=== PATIENT | female | born 1960 | race Caucasian/White ===

== ENCOUNTER 2017-02-20 12:25 | Emergency (ER) | payer OTHER ==
[~2017-02-20] VITALS: Ht 165.1 cm; Wt 81.6 kg
[~2017-02-20 12:25] MED LIST: CEPH500T7 PO; SULF-198 PO; TRIA15OI20 TP; VALP250D PO
--- NOTE | 2017-02-20 12:32 | ER Report ---
History and Physical Time Seen By MD: 12:31 HPI/ROS CHIEF COMPLAINT: Right lower quadrant abdominal pain HISTORY OF PRESENT ILLNESS: 56-year-old female patient presents to the emergency room with complaint of right lower quadrant abdominal pain. Patient states it started this morning when she bent over to pick out hand a sock. Patient states that she felt a stabbing pain in the right lower quadrant. She states that when she was standing up that she had no difficulties. She states she also had worsening pain when she sat down in her car. She states while she was here at work, she works as a nurse here in the hospital, that she had no pain except when she bent over. She states that she can keep her right leg straight that she had a decrease in her pain. She denies any nausea, vomiting, diarrhea. States she's been eating trigger no problems. She states she became significant only more concerned when she would sit down at lunch and had worsening pain. REVIEW OF SYSTEMS: Respiratory: No cough, no dyspnea. Cardiovascular: No chest pain, no palpitations. Gastrointestinal: As noted above Musculoskeletal: No back pain. Allergies: Coded Allergies: amoxicillin (Verified Allergy, Unknown, 02/20/17) clavulanic acid (Verified Allergy, Unknown, 02/20/17) Home Meds Active Scripts Nitrofurantoin Monohyd/M-Cryst (MACROBID 100 MG CAPSULE) 100 Mg Capsule, 100 MG PO BID, #14 CAPSULE Prov:ADA BRYSON [facility] 02/20/17 Ketorolac Tromethamine (KETOROLAC TROMETHAMINE) 10 Mg Tab, 10 MG PO Q6H, #20 TAB Prov:ADA BRYSON [facility] 02/20/17 Discontinued Scripts Cephalexin 500 Mg Tab (KEFLEX 500 MG TAB) 500 Mg Tablet, 500 MG PO Q6H, #20 TAB Prov:ADA BRYSON [facility] 04/16/16 Past Medical/Surgical History Patient has a past medical history of her alcohol use. Patient has surgical history of tonsillectomy. Reviewed Nurses Notes: Yes Hx Smoking: Yes (1/2PPD) Smoking Status: Current: Every Day Smoker Exposure to Second Hand Smoke?: Yes Hx Substance Use Disorder: No Hx Alcohol Use: Yes (RARE) Constitutional Vital Sign - Last 24 Hours 02/20/17 02/20/17 02/20/17 02/20/17 12:47 12:48 12:55 13:00 Temp 97.2 Pulse 102 80 B/P (MAP) 132/95 (107) 132/95 (107) 109/63 (78) Pulse Ox 91 91 O2 Delivery Room Air 02/20/17 02/20/17 02/20/17 02/20/17 13:25 13:55 14:30 15:00 Pulse 83 78 80 78 B/P (MAP) 113/66 (82) 125/83 (97) Pulse Ox 90 90 90 Intake and Output 02/20/17 02/20/17 02/21/17 15:00 23:00 07:00 Intake Total 1000 ml Balance 1000 ml Physical Exam General Appearance: The patient is alert, has no immediate need for airway protection and no current signs of toxicity. ENT: Hepatic membranes are pearly-will, auditory canals are patent, mucous membranes are moist Respiratory: Chest is non tender, lungs are clear to auscultation. Cardiac: regular rate and rhythm Gastrointestinal: Abdomen is soft and tender in the right lower quadrant, almost in the inguinal canal, no masses, bowel sounds normal. Musculoskeletal: Neck: Neck is supple and non tender. Extremities have full range of motion and are non tender. Skin: No rashes or lesions. DIFFERENTIAL DIAGNOSIS: After history and physical exam differential diagnosis was considered for abdominal pain including but not limited to appendicitis, cholecystitis, gastritis and urinary tract infection. Medical Decision Making Data Points Result Diagram: 02/20/17 1228 02/20/17 1333 Laboratory Hematology Test 02/20/17 12:28 02/20/17 12:29 02/20/17 13:33 Red Blood Count 5.82 M/uL (4.17-5.56) Mean Corpuscular Volume 89.3 fL (80.0-96.0) Mean Corpuscular Hemoglobin 30.8 pg (26.0-33.0) Mean Corpuscular Hemoglobin Concent 34.4 g/dL (32.0-36.0) Red Cell Distribution Width 13.5 % (11.5-14.5) Mean Platelet Volume 8.6 fL (7.2-11.1) Neutrophils (%) (Auto) 58.4 % (39.4-72.5) Lymphocytes (%) (Auto) 34.0 % (17.6-49.6) Monocytes (%) (Auto) 5.2 % (4.1-12.4) Eosinophils (%) (Auto) 1.2 % (0.4-6.7) Basophils (%) (Auto) 1.2 % (0.3-1.4) Nucleated RBC Relative Count (auto) 0.0 /100WBC Neutrophils # (Auto) 5.0 K/uL (2.0-7.4) Lymphocytes # (Auto) 2.9 K/uL (1.3-3.6) Monocytes # (Auto) 0.4 K/uL (0.3-1.0) Eosinophils # (Auto) 0.1 K/uL (0.0-0.5) Basophils # (Auto) 0.1 K/uL (0.0-0.1) Nucleated RBC Absolute Count (auto) 0.00 K/uL Urine Color Yellow Urine Clarity Slightly-cloudy Urine pH 5.0 pH (4.8-9.5) Urine Specific Sherwood 1.011 Urine Protein Negative mg/dL (NEGATIVE) Urine Glucose (UA) Negative mg/dL (NEGATIVE) Urine Ketones Negative mg/dL (NEGATIVE) Urine Blood Small (NEGATIVE) Urine Nitrite Negative (NEGATIVE) Urine Bilirubin Negative (NEGATIVE) Urine Urobilinogen Negative mg/dL (0.2-1.9) Urine Leukocyte Esterase Large (NEGATIVE) Urine RBC 8 /HPF (0-2/HPF) Urine WBC 14 /HPF (0-5/HPF) Urine Squamous Epithelial Cells Many /LPF (</=FEW) Urine Amorphous Crystals Few /HPF Urine Bacteria Few /HPF (NONE-FEW) Urine Mucus None /HPF (NONE-FEW) Sodium Level 139 mmol/L (137-145) Potassium Level 3.8 mmol/L (3.5-5.0) Chloride Level 106 mmol/L (98-107) Carbon Dioxide Level 25 mmol/L (22-31) Blood Urea Nitrogen 12 mg/dl (7-18) Creatinine 0.70 mg/dl (0.52-1.04) Glomerular Filtration Rate Calc > 60.0 Random Glucose 73 mg/dl (75-110) Calcium Level 9.7 mg/dl (8.4-10.2) Total Bilirubin 0.5 mg/dl (0.2-1.3) Aspartate Amino Transf (AST/SGOT) 23 U/L (0-35) Alanine Aminotransferase (ALT/SGPT) 37 U/L (0-56) Alkaline Phosphatase 91 U/L (0-126) Total Protein 6.0 gm/dl (6.3-8.2) Albumin 3.6 g/dl (3.5-5.0) Amylase Level 83 U/L (0-110) Lipase 91 U/L (23-300) Chemistry Test 02/20/17 12:28 02/20/17 12:29 02/20/17 13:33 White Blood Count 8.6 k/uL (4.5-11.0) Red Blood Count 5.82 M/uL (4.17-5.56) Hemoglobin 17.9 g/dL (12.0-16.0) Hematocrit 52.0 % (34.0-47.0) Mean Corpuscular Volume 89.3 fL (80.0-96.0) Mean Corpuscular Hemoglobin 30.8 pg (26.0-33.0) Mean Corpuscular Hemoglobin Concent 34.4 g/dL (32.0-36.0) Red Cell Distribution Width 13.5 % (11.5-14.5) Platelet Count 281 K/uL (150-450) Mean Platelet Volume 8.6 fL (7.2-11.1) Neutrophils (%) (Auto) 58.4 % (39.4-72.5) Lymphocytes (%) (Auto) 34.0 % (17.6-49.6) Monocytes (%) (Auto) 5.2 % (4.1-12.4) Eosinophils (%) (Auto) 1.2 % (0.4-6.7) Basophils (%) (Auto) 1.2 % (0.3-1.4) Nucleated RBC Relative Count (auto) 0.0 /100WBC Neutrophils # (Auto) 5.0 K/uL (2.0-7.4) Lymphocytes # (Auto) 2.9 K/uL (1.3-3.6) Monocytes # (Auto) 0.4 K/uL (0.3-1.0) Eosinophils # (Auto) 0.1 K/uL (0.0-0.5) Basophils # (Auto) 0.1 K/uL (0.0-0.1) Nucleated RBC Absolute Count (auto) 0.00 K/uL Urine Color Yellow Urine Clarity Slightly-cloudy Urine pH 5.0 pH (4.8-9.5) Urine Specific Sherwood 1.011 Urine Protein Negative mg/dL (NEGATIVE) Urine Glucose (UA) Negative mg/dL (NEGATIVE) Urine Ketones Negative mg/dL (NEGATIVE) Urine Blood Small (NEGATIVE) Urine Nitrite Negative (NEGATIVE) Urine Bilirubin Negative (NEGATIVE) Urine Urobilinogen Negative mg/dL (0.2-1.9) Urine Leukocyte Esterase Large (NEGATIVE) Urine RBC 8 /HPF (0-2/HPF) Urine WBC 14 /HPF (0-5/HPF) Urine Squamous Epithelial Cells Many /LPF (</=FEW) Urine Amorphous Crystals Few /HPF Urine Bacteria Few /HPF (NONE-FEW) Urine Mucus None /HPF (NONE-FEW) Glomerular Filtration Rate Calc > 60.0 Calcium Level 9.7 mg/dl (8.4-10.2) Total Bilirubin 0.5 mg/dl (0.2-1.3) Aspartate Amino Transf (AST/SGOT) 23 U/L (0-35) Alanine Aminotransferase (ALT/SGPT) 37 U/L (0-56) Alkaline Phosphatase 91 U/L (0-126) Total Protein 6.0 gm/dl (6.3-8.2) Albumin 3.6 g/dl (3.5-5.0) Amylase Level 83 U/L (0-110) Lipase 91 U/L (23-300) Urinalysis Test 02/20/17 12:29 Urine Color Yellow Urine Clarity Slightly-cloudy Urine pH 5.0 pH (4.8-9.5) Urine Specific [place]wood 1.011 Urine Protein Negative mg/dL (NEGATIVE) Urine Glucose (UA) Negative mg/dL (NEGATIVE) Urine Ketones Negative mg/dL (NEGATIVE) Urine Blood Small (NEGATIVE) Urine Nitrite Negative (NEGATIVE) Urine Bilirubin Negative (NEGATIVE) Urine Urobilinogen Negative mg/dL (0.2-1.9) Urine Leukocyte Esterase Large (NEGATIVE) Urine RBC 8 /HPF (0-2/HPF) Urine WBC 14 /HPF (0-5/HPF) Urine Squamous Epithelial Cells Many /LPF (</=FEW) Urine Amorphous Crystals Few /HPF Urine Bacteria Few /HPF (NONE-FEW) Urine Mucus None /HPF (NONE-FEW) EKG/Imaging Imaging ABDOMEN/PELVIS WITH CONTRAST HISTORY: Right lower quadrant pain TECHNIQUE: CT abdomen and pelvis with intravenous contrast. Contiguous axial images of the abdomen and pelvis was performed from the lung bases to the symphysis pubis. One of the following dose optimization techniques was utilized in the performance of this exam: Automated exposure control; adjustment of the mA and/ or kV according to the patient's size; or use of an iterative reconstruction technique. Specific details can be referenced in the facility's radiology CT exam operational policy. CONTRAST: 75 cc of Isovue-370 COMPARISON: None. FINDINGS: Visualized lung bases: Negative. Hepatobiliary: Negative. Spleen: Negative. Adrenals: Negative. Kidneys/: Negative. Pancreas: Negative. GI: The appendix is normal. No evidence for bowel obstruction or focal inflammation. Vessels/spaces/nodes: Atherosclerotic calcification is noted. Bones/soft tissues: Negative. IMPRESSION: 1. A source for abdominal pain is not forthcoming on the current study. Appendix is normal. No evidence for bowel obstruction or focal inflammation. Report Dictated By: Elmer Bosch MD at 02/20/2017 2:57 PM Report E-Signed By: Elmer Bosch MD at 02/20/2017 3:15 PM ED Course/Re-evaluation ED Course Patient was admitted to an exam room, history and physical were obtained. Differential diagnoses were considered. On examination patient has tenderness in the right lower quadrant, almost down in the inguinal canal. A CBC, CMP, urinalysis were obtained. Patient did have a urinary tract infection, 5 white blood cells per high-power field. The remainder of her lab work was unremarkable. A CT scan of abdomen and pelvis was done. There is no acute findings noted. Patient did receive 30 mg of Toradol IV. Other evaluations patient states she had significant improvement. I did discuss with patient that with the results of the lab tests as well as the CT scan I believe that she likely has a muscle strain. We will go ahead and discharge her home with Toradol for pain as well as Macrobid for her urinary tract infection. We will go ahead and culture the urine to last change treatment if need be. I discussed this with the patient who verbalized understanding and agreement. Decision to Disposition Date: Feb 20, 2017 Decision to Disposition Time: 15:37 Depart Departure Latest Vital Signs Vital Signs Date Time Temp Pulse Resp B/P (MAP) Pulse Ox O2 Delivery O2 Flow Rate FiO2 02/20/17 15:00 78 125/83 (97) 90 02/20/17 12:48 97.2 Room Air Impression: Primary Impression: Muscle strain Additional Impression: UTI (urinary tract infection) Condition: Improved Disposition: HOME OR SELF-CARE New Scripts Nitrofurantoin Monohyd/M-Cryst (MACROBID 100 MG CAPSULE) 100 Mg Capsule 100 MG PO BID, #14 CAPSULE Prov: ADA BRYSON 02/20/17 Ketorolac Tromethamine (KETOROLAC TROMETHAMINE) 10 Mg Tab 10 MG PO Q6H, #20 TAB Prov: ADA BRYSON 02/20/17 Patient Instructions: Muscle Strain (ED) Additional Instructions: Limit activity by pain. Get plenty of rest. Follow up with your primary care provider in the next week if pain persists. Don't take any Aleve, Ibuprofen while taking the Toradol. Return to the ER if condition worsens. Ice the area 2-3 times a day for 10-15 minutes. You may return to work tomorrow. Problem Qualifiers Additional Impression: UTI (urinary tract infection) Urinary tract infection type: acute cystitis Hematuria presence: without hematuria Qualified Codes: N30.00 - Acute cystitis without hematuria ADA BRYSON Feb 20, 2017 12:32
[2017-02-20] MEDS ORDERED: NS(*) 0.9% 1000 ML BAG 1,000 ML IV ONE (12:50)
[2017-02-20] MEDS ORDERED: KETOROLAC 30 MG/ML VIAL IVP ONE (12:55)
[2017-02-20 13:05] LABS: PLATELET COUNT, AUTOMATED 281 K/uL (150-450)
[2017-02-20] MEDS ORDERED: NS 0.9% 50 ML VIAL 50 ML ONE (13:45)
[2017-02-20] MEDS ORDERED: IOPAMIDOL 76% 75 ML INFUS BTL 75 ML ONE (13:45)
[2017-02-20 15:00] VITALS: BP 125/83
--- NOTE | 2017-02-20 15:20 | RADIOLOGY IMAGING REPORT ---
FACILITY: [facility] [place] PATIENT NAME: Joanne Harrison : 1960 MR: [id number] V: [id number] EXAM DATE: ORDERING PHYSICIAN: ADA BRYSON TECHNOLOGIST: Location: [facility] [place] Patient: Joanne Harrison : 1960 Visit/Account:[id number] Date of Sevice: 02/20/2017 ABDOMEN/PELVIS WITH CONTRAST HISTORY: Right lower quadrant pain TECHNIQUE: CT abdomen and pelvis with intravenous contrast. Contiguous axial images of the abdomen and pelvis was performed from the lung bases to the symphysis pubis. One of the following dose optimization techniques was utilized in the performance of this exam: Autom ated exposure control; adjustment of the mA and/or kV according to the patient's size; or use of an i terative reconstruction technique. Specific details can be referenced in the facility's radiology C T exam operational policy. CONTRAST: 75 cc of Isovue-370 COMPARISON: None. FINDINGS: Visualized lung bases: Negative. Hepatobiliary: Negative. Spleen: Negative. Adrenals: Negative. Kidneys/: Negative. Pancreas: Negative. GI: The appendix is normal. No evidence for bowel obstruction or focal inflammation. Vessels/spaces/nodes: Atherosclerotic calcification is noted. Bones/soft tissues: Negative. IMPRESSION: 1. A source for abdominal pain is not forthcoming on the current study. Appendix is normal. No evide nce for bowel obstruction or focal inflammation. Report Dictated By: Elmer Bosch MD at 02/20/2017 2:57 PM Report E-Signed By: Elmer Bosch MD at 02/20/2017 3:15 PM WSN:[id number]
[2017-02-20] MEDS ORDERED: NITR-105 PO (15:35)
[2017-02-20] MEDS ORDERED: KET10 PO (15:35)
== END 2017-02-20 15:48 | disposition home or self-care (01) ==
LOC: ER 12:34
DX: S39.011A Strain of muscle, fascia and tendon of abdomen, initial encounter (principal); N30.00 Acute cystitis without hematuria
CPT/HCPCS: 36415; 74177; 81001; 82150; 83690; 85025; 96361; 96374; 99284; J1885; J7030; J7050; Q9967; 82040; 82247; 82310; 82374; 82435; 82565; 82947; 84075; 84132; 84155; 84295; 84450; 84460; 84520